=== PATIENT | male | born 1985 | race Two or more races ===

== ENCOUNTER 2019-03-22 17:38 | Emergency (ER) | payer SELFPAY ==
[~2019-03-22] VITALS: Ht 182.9 cm; Wt 160.6 kg
[2019-03-22 17:52] VITALS: BP 145/96
[2019-03-22] MEDS ORDERED: predniSONE 10 MG TABLET PO ONE (18:30)
[2019-03-22] MEDS ORDERED: PRED50TA PO (18:30)
--- NOTE | 2019-03-22 18:30 | PHYS DOC ---
Past Medical History Past Medical History: No Pertinent History (KELLI HARPER APRN) Past Surgical History: No Surgical History (KELLI HARPER APRN) Alcohol Use: None Drug Use: None (KELLI HARPER APRN) Adult General Chief Complaint Chief Complaint: EYE PROBLEMS HPI HPI Patient is a 34 year old male who is unsteady emergency department with complaints of right eye swelling. Patient states he was stung in the right side of his forehead yesterday by a bee or a wasp. He has been taking Benadryl at home every 6 hours but noticed that his eye started to swell today. He denies any shortness of breath, vision changes, tearing of the affected eye, fever, or itching. Patient denies any pain at this time. (KELLI HARPER APRN) Review of Systems Review of Systems Constitutional: Denies fever or chills [] Eyes: Denies change in visual acuity, see history of present illness HENT: Denies nasal congestion or sore throat [] Respiratory: Denies cough or shortness of breath [] Integument: Reports erythema and swelling to right forehead and right eye after insect sting Neurologic: Denies headache, Endocrine: Denies polyuria or polydipsia [] Complete systems were reviewed and found to be within normal limits, except as documented in this note. (KELLI HARPER APRN) Current Medications Current Medications Current Medications Medications (Trade) Dose Ordered Sig/Guanako Start Time Stop Time Status Last Admin Dose Admin Prednisone (Prednisone) 50 mg 1X ONCE 03/22/19 18:30 03/22/19 18:31 DC 03/22/19 18:28 50 MG (JOCELYNE ALBARADO MD) Allergies Allergies Allergies Coded Allergies Type Severity Reaction Last Updated Verified No Known Drug Allergies 03/22/19 No (JOCELYNE ALBARADO MD) Physical Exam Physical Exam Constitutional: Well developed, well nourished, no acute distress, non-toxic appearance, obese. [] HENT: Normocephalic, atraumatic, bilateral external ears normal, oropharynx moist, no oral exudates, nose normal. [] Eyes: PERRLA, EOMI, conjunctiva normal, no discharge; moderate edema to right eyelids, no drainage, no tearing from eye. [] Neck: Normal range of motion, no stridor. [] Cardiovascular:Heart rate regular rhythm Lungs & Thorax: Bilateral breath sounds clear to auscultation [] Skin: Warm, dry; erythema surrounding punctum site of right forehead, consistent with allergic reaction to insect sting Extremities: No cyanosis, no clubbing, ROM intact Neurologic: Alert and oriented X 3, no focal deficits noted. [] Psychologic: Affect normal, judgement normal, mood normal. [] (KELLI HARPER APRN) Current Patient Data Vital Signs Vital Signs Date Time Temp Pulse Resp B/P (MAP) Pulse Ox O2 Delivery O2 Flow Rate FiO2 03/22/19 17:52 98.5 94 18 145/96 (112) 96 Room Air 98.5 (JOCELYNE ALBARADO MD) EKG EKG [] (KELLI HARPER APRN) Radiology/Procedures Radiology/Procedures [] (KELLI HARPER APRN) Course & Med Decision Making Course & Med Decision Making Pertinent Labs and Imaging studies reviewed. (See chart for details) [] (KELLI HARPER APRN) Course & Med Decision Making Staff Physician Addendum: I was working in the ER during the course of this patient's visit. I was av ailable for consultation as needed, but I was not directly involved in the care of this patient. (JOCELYNE ALBARADO MD) Dragon Disclaimer Dragon Disclaimer This electronic medical record was generated, in whole or in part, using a voice recognition dictation system. (KELLI HARPER APRN) Departure Departure Impression: Primary Impression: Allergic reaction to insect sting Disposition: 01 HOME, SELF-CARE Condition: STABLE Referrals: NO PCP (PCP) Patient Instructions: Bee, Wasp, or Hornet Sting Additional Instructions: Fill the prescription and begin taking medication tomorrow as you were given the first dose in the ER today. Continue taking Benadryl 1-2 tablets every 6 hours as needed for itching and swelling. Follow-up with your primary care doctor if her symptoms persist, return to the ER for symptoms worsen. Scripts Prednisone (PREDNISONE) 50 Mg Tablet 1 TAB PO DAILY for 4 Days, #4 TAB 0 Refills begin taking on 03/23/19 Prov: KELLI HARPER APRN 03/22/19 Problem Qualifiers Primary Impression: Allergic reaction to insect sting Encounter type: initial encounter Injury intent: accidental or unintentional Qualified Codes: T63.481A - Toxic effect of venom of other arthropod, accidental (unintentional), initial encounter KELLI HARPER SALES PLANNING COORDINATOR Mar 22, 2019 18:30 JOCELYNE ALBARADO MD Mar 22, 2019 21:21
== END 2019-03-22 18:36 | disposition home or self-care (01) ==
LOC: ER 17:38
DX: T63.481A Toxic effect of venom of other arthropod, accidental (unintentional), initial encounter (principal); Y92.89 Other specified places as the place of occurrence of the external cause
CPT/HCPCS: 99283; J7512

== ENCOUNTER 2020-10-01 05:58 | Emergency (ER) | payer OTHER ==
[~2020-10-01] VITALS: Ht 182.9 cm; Wt 156.8 kg
[~2020-10-01 05:58] MED LIST: PRED50TA PO
[2020-10-01] MEDS ORDERED: TETRACAINE 0.5% OPHTH SOLUTION 4ML BOTTLE. OU ONE (06:15)
[2020-10-01] MEDS ORDERED: FLUORESCEIN OPHTH TEST STRIP. OU ONE (06:15)
[2020-10-01] MEDS ORDERED: GENT3.5O9 OS (06:40)
[2020-10-01] MEDS ORDERED: TOBR5DRO6 OS (06:40)
--- NOTE | 2020-10-01 06:40 | PHYS DOC ---
Past Medical History Past Medical History: No Pertinent History Past Surgical History: No Surgical History Smoking Status: Never Smoker Alcohol Use: None Drug Use: None General Adult EDM: Chief Complaint: EYE PROBLEMS HPI: HPI: Patient is a 35 year old male who presented to ER for evaluation of left eye irritation since yesterday. Patient described the pain as sharp scratching, very sensitive to light. Patient IS not sure what happened, he woke up in the morning yesterday and had the problem. Patient had corneal abrasion in the past and symptoms of feeling the same way as before. Review of Systems: Review of Systems: Constitutional: Denies fever or chills. [] Eyes: Left eye pain, No loss of vision. HENT: Denies nasal congestion or sore throat. [] Respiratory: Denies cough or shortness of breath. [] Cardiovascular: Denies chest pain or edema. [] GI: Denies abdominal pain, nausea, vomiting, bloody stools or diarrhea. [] : Denies dysuria. [] Musculoskeletal: Denies back pain or joint pain. [] Integument: Denies rash. [] Neurologic: Denies headache, focal weakness or sensory changes. [] Endocrine: Denies polyuria or polydipsia. [] Lymphatic: Denies swollen glands. [] Psychiatric: Denies depression or anxiety. [] Heart Score: Risk Factors: Risk Factors: DM, Current or recent (<one month) smoker, HTN, HLP, family history of CAD, obesity. Risk Scores: Score 0 - 3: 2.5% MACE over next 6 weeks - Discharge Home Score 4 - 6: 20.3% MACE over next 6 weeks - Admit for Clinical Observation Score 7 - 10: 72.7% MACE over next 6 weeks - Early Invasive Strategies Current Medications: Current Medications Medications (Trade) Dose Ordered Sig/Guanako Start Time Stop Time Status Last Admin Dose Admin Fluorescein Sodium (Ful-Tootie) 1 strip 1X ONCE 10/01/20 06:15 10/01/20 06:16 DC 10/01/20 06:27 1 STRIP Tetracaine HCl (Tetracaine) 1 drop 1X ONCE 10/01/20 06:15 10/01/20 06:16 DC 10/01/20 06:27 1 DROP Allergies: Allergies: Allergies Coded Allergies Type Severity Reaction Last Updated Verified No Known Drug Allergies 7/15/19 No Physical Exam: PE: Constitutional: Well developed, well nourished, no acute distress, non-toxic appearance. [] HENT: Normocephalic, atraumatic, bilateral external ears normal, oropharynx moist, no oral exudates, nose normal. [] Eyes: PERRLA, EOMI, conjunctiva is injected, watery, no discharge, dye uptake at the 6 olock position consistent with cornea abrasion . Neck: Normal range of motion, no tenderness, supple, no stridor. [] Cardiovascular:Heart rate regular rhythm, no murmur [] Lungs & Thorax: Bilateral breath sounds clear to auscultation [] Abdomen: Bowel sounds normal, soft, no tenderness, no masses, no pulsatile mas ses. [] Skin: Warm, dry, no erythema, no rash. [] Back: No tenderness, no CVA tenderness. [] Extremities: No tenderness, no cyanosis, no clubbing, ROM intact, no edema. [] Neurologic: Alert and oriented X 3, normal motor function, normal sensory function, no focal deficits noted. [] Psychologic: Affect normal, judgement normal, mood normal. [] EKG: EKG: [] Radiology/Procedures: Radiology/Procedures: [] Course & Med Decision Making: Course & Med Decision Making Pertinent Labs and Imaging studies reviewed. (See chart for details) [] Dragon Disclaimer: Dragon Disclaimer: This electronic medical record was generated, in whole or in part, using a voice recognition dictation system. Departure Departure Impression: Primary Impression: Left cornea abrasion Disposition: 01 DC HOME SELF CARE/HOMELESS Condition: IMPROVED Referrals: NO PCP (PCP) Please call this EYE DOCTOR BELOW FOR FOLLOW UP IN 1-[address] Moose Mckee [address] [id number] Patient Instructions: Eye - Corneal Abrasion Additional Instructions: Thank you for visiting our Emergency Department. We appreciate you trusting us with your care. If any additional problems come up don't hesitate to return to visit us. Please follow up with your primary care provider so they can plan additional care if needed and know about the problem that you had. If symptoms worsen come back to the Emergency Department. Any concerning symptoms that start such as chest pain, shortness of air, weakness or numbness on one side of the body, running high fevers or any other concerning symptoms return to the ER. Scripts Gentamicin Sulfate (GENTAMICIN SULFATE 0.3% OPHTH OINT) 3.5 Gm Oint...g. 1 KIRA OS QID for 5 Days, #1 EACH Prov: ELIGIO DE DO 10/01/20 Tobramycin Ophth (TOBRAMYCIN OPHTH DROPS) 5 Ml Drops 2 DROP OS QID for 7 Days, #5 ML 0 Refills Prov: ELIGIO DE DO 10/01/20 ELIGIO DE DO Oct 01, 2020 06:40
== END 2020-10-01 06:45 | disposition home or self-care (01) ==
LOC: ER 05:58
DX: S05.02XA Injury of conjunctiva and corneal abrasion without foreign body, left eye, initial encounter (principal); R20.2 Paresthesia of skin; X58.XXXA Exposure to other specified factors, initial encounter; Y93.89 Activity, other specified; Y92.89 Other specified places as the place of occurrence of the external cause; Y99.8 Other external cause status
CPT/HCPCS: 99283

== ENCOUNTER 2021-02-17 17:24 | Emergency (ER) | payer OTHER ==
[~2021-02-17] VITALS: Ht 182.9 cm; Wt 156.8 kg
[~2021-02-17 17:24] MED LIST changes: +GENT3.5O9 OS; +TOBR5DRO6 OS
[2021-02-17 17:40] VITALS: BP 144/66
[2021-02-17] MEDS ORDERED: TETRACAINE 0.5% OPHTH SOLUTION 4ML BOTTLE. OS ONE (19:30)
[2021-02-17] MEDS ORDERED: FLUORESCEIN OPHTH TEST STRIP. OS ONE (19:30)
[2021-02-17] MEDS ORDERED: TOBR3.5O2 LEFTEYE (20:43)
--- NOTE | 2021-02-17 20:43 | PHYS DOC ---
Past Medical History Past Medical History: No Pertinent History Past Surgical History: No Surgical History Smoking Status: Never Smoker Alcohol Use: None Drug Use: None General Adult EDM: Chief Complaint: EYE PROBLEMS HPI: HPI: Patient is a 35 year old male with history of corneal abrasion to the left eye presenting today stating he has scratched his left eye again 2 days ago. Patient denies any vision loss. Reports tearing and photosensitivity. He states he has been using erythromycin eye ointment but does not feel it is doing anything Review of Systems: Review of Systems: Constitutional: Denies fever or chills. [] Eyes: Reports corneal abrasion/scratch to the left eye. Denies change in visual acuity. [] Musculoskeletal: Denies back pain or joint pain. [] Integument: Denies rash. [] Neurologic: Denies headache, focal weakness or sensory changes. [] Psychiatric: Denies depression or anxiety. [] Heart Score: C/O Chest Pain: N/A Risk Factors: Risk Factors: DM, Current or recent (<one month) smoker, HTN, HLP, family history of CAD, obesity. Risk Scores: Score 0 - 3: 2.5% MACE over next 6 weeks - Discharge Home Score 4 - 6: 20.3% MACE over next 6 weeks - Admit for Clinical Observation Score 7 - 10: 72.7% MACE over next 6 weeks - Early Invasive Strategies Current Medications: Current Medications Medications (Trade) Dose Ordered Sig/Guanako Start Time Stop Time Status Last Admin Dose Admin Fluorescein Sodium (Ful-Tootie) 1 strip 1X ONCE 02/17/21 19:30 02/17/21 19:31 DC 02/17/21 20:23 1 STRIP Tetracaine HCl (Tetracaine) 1 drop 1X ONCE 02/17/21 19:30 02/17/21 19:31 DC 02/17/21 20:23 1 DROP Allergies: Allergies: Allergies Coded Allergies Type Severity Reaction Last Updated Verified No Known Drug Allergies 03/22/19 No Physical Exam: PE: Constitutional: Well developed, well nourished, no acute distress, non-toxic appearance. [] HENT: Normocephalic, atraumatic, bilateral external ears normal, oropharynx moist, no oral exudates, nose normal. [] Eyes: PERRLA, EOMI, left conjunctiva is moderately injected. Left eye exam under Kirkpatrick lamp, I was numbed with tetracaine and stained with fluorescein. Small corneal abrasion noted at around 1700 position. There appears to be another old corneal abrasion beside this one Skin: Warm, dry, no erythema, no rash. [] Back: No tenderness, no CVA tenderness. [] Extremities: No tenderness, no cyanosis, no clubbing, ROM intact, no edema. [] Neurologic: Alert and oriented X 3, normal motor function, normal sensory function, no focal deficits noted. [] Psychologic: Affect normal, judgement normal, mood normal. [] Current Patient Data: Vital Signs: Vital Signs Date Time Temp Pulse Resp B/P (MAP) Pulse Ox O2 Delivery O2 Flow Rate FiO2 02/17/21 17:40 98.4 98 20 144/66 (92) 96 98.4 EKG: EKG: [] Radiology/Procedures: Radiology/Procedures: [] Course & Med Decision Making: Course & Med Decision Making Pertinent Labs and Imaging studies reviewed. (See chart for details) This is a 35-year-old male patient with cornea abrasion to the left eye. This is patient's second corneal abrasion in 1 year I recommended seeing an drying equipment operator which I provided. Discharge today with tobramycin. He states he has been using an eye ointment. Visual acuity documented by nursing staff. Tetanus up-to-date. Saad Disclaimer: Saad Disclaimer: This electronic medical record was generated, in whole or in part, using a voice recognition dictation system. Departure Departure Impression: Primary Impression: Corneal abrasion, left Qualified Codes: S05.02XA - Injury of conjunctiva and corneal abrasion without foreign body, left eye, initial encounter Disposition: HOME / SELF CARE / HOMELESS Condition: STABLE Referrals: NO PCP (PCP) BEN SIMMONS MD Patient Instructions: Eye - Corneal Abrasion, [id number] Additional Instructions: You have a corneal abrasion to the left eye. Use the medicine prescribed as ordered. Please follow-up with the provided drying equipment operator next week. Scripts Tobramycin/Dexamethasone (TOBRADEX EYE OINTMENT) 3.5 Gm Oint...g. 1 KIRA ZAC FLOWERSD, #3.5 GM Prov: CUBA TREVINO CIVIL ENGINEER IN TRAINING 02/17/21 CUBA TREVINO CIVIL ENGINEER IN TRAINING Feb 17, 2021 20:43
== END 2021-02-17 20:55 | disposition home or self-care (01) ==
LOC: ER 17:24
DX: S05.02XA Injury of conjunctiva and corneal abrasion without foreign body, left eye, initial encounter (principal); W50.4XXA Accidental scratch by another person, initial encounter; Y93.89 Activity, other specified; Y92.89 Other specified places as the place of occurrence of the external cause; Y99.8 Other external cause status
CPT/HCPCS: 99283

== ENCOUNTER 2021-04-18 11:54 | Emergency (ER) | payer OTHER ==
[~2021-04-18] VITALS: Ht 182.9 cm; Wt 179.7 kg
[~2021-04-18 11:54] MED LIST changes: +TOBR3.5O2 LEFTEYE
[2021-04-18 13:20] VITALS: BP 140/67
[2021-04-18] MEDS ORDERED: TETRACAINE 0.5% OPHTH SOLUTION 4ML BOTTLE. OS ONE (13:45)
[2021-04-18] MEDS ORDERED: FLUORESCEIN OPHTH TEST STRIP. OS ONE (13:45)
[2021-04-18] MEDS ORDERED: TOBR5DRO6 OS (13:56)
[2021-04-18] MEDS ORDERED: ERYT1OIN6 OP (13:56)
--- NOTE | 2021-04-18 13:57 | PHYS DOC ---
Past Medical History Past Medical History: No Pertinent History Additional Past Medical Histor: morbid obesity Past Surgical History: No Surgical History Smoking Status: Never Smoker Alcohol Use: None Drug Use: None General Adult EDM: Chief Complaint: EYE PROBLEMS HPI: HPI: Patient is a 36 year old male who present to ER for evaluation of left eye irritation since last night patient said his eye is red and very sensitive to light, initially he felt like there was something in his left eye so he was scrubbed and oriented now become more painful. Patient is up-to-date on his tetanus status. Review of Systems: Review of Systems: Constitutional: Denies fever or chills. [] Eyes: Denies change in visual acuity. Positive for left eye pain and irritation. HENT: Denies nasal congestion or sore throat. [] Respiratory: Denies cough or shortness of breath. [] Cardiovascular: Denies chest pain or edema. [] GI: Denies abdominal pain, nausea, vomiting, bloody stools or diarrhea. [] : Denies dysuria. [] Musculoskeletal: Denies back pain or joint pain. [] Integument: Denies rash. [] Neurologic: Denies headache, focal weakness or sensory changes. [] Endocrine: Denies polyuria or polydipsia. [] Lymphatic: Denies swollen glands. [] Psychiatric: Denies depression or anxiety. [] Heart Score: C/O Chest Pain: N/A Risk Factors: Risk Factors: DM, Current or recent (<one month) smoker, HTN, HLP, family history of CAD, obesity. Risk Scores: Score 0 - 3: 2.5% MACE over next 6 weeks - Discharge Home Score 4 - 6: 20.3% MACE over next 6 weeks - Admit for Clinical Observation Score 7 - 10: 72.7% MACE over next 6 weeks - Early Invasive Strategies Current Medications: Current Medications Medications (Trade) Dose Ordered Sig/Guanako Start Time Stop Time Status Last Admin Dose Admin Fluorescein Sodium (Ful-Tootie) 1 strip 1X ONCE 04/18/21 13:45 04/18/21 13:46 DC 04/18/21 13:38 1 STRIP Tetracaine HCl (Tetracaine) 2 drop 1X ONCE 04/18/21 13:45 04/18/21 13:46 DC 04/18/21 13:38 2 DROP Allergies: Allergies: Allergies Coded Allergies Type Severity Reaction Last Updated Verified No Known Drug Allergies 04/18/21 No Physical Exam: PE: Constitutional: Well developed, well nourished, no acute distress, non-toxic appearance. [] HENT: Normocephalic, atraumatic, bilateral external ears normal, oropharynx moist, no oral exudates, nose normal. [] Eyes: PERRLA, EOMI, left conjunctive are slightly injected,DYE UPTAKE AT MID POINT OF PUPIL AREA CONSISTENT WITH CORNEA ABRASION, NO HYPHEMA, NEGATIVE SIDEL TEST. Neck: Normal range of motion, no tenderness, supple, no stridor. [] Cardiovascular:Heart rate regular rhythm, no murmur [] Lungs & Thorax: Bilateral breath sounds clear to auscultation [] Abdomen: Bowel sounds normal, soft, no tenderness, no masses, no pulsatile masses. [] Skin: Warm, dry, no erythema, no rash. [] Back: No tenderness, no CVA tenderness. [] Extremities: No tenderness, no cyanosis, no clubbing, ROM intact, no edema. [] Neurologic: Alert and oriented X 3, normal motor function, normal sensory function, no focal deficits noted. [] Psychologic: Affect normal, judgement normal, mood normal. [] Current Patient Data: Vital Signs: Vital Signs Date Time Temp Pulse Resp B/P (MAP) Pulse Ox O2 Delivery O2 Flow Rate FiO2 04/18/21 13:20 97.4 86 20 140/67 (92) 96 Room Air 97.4 EKG: EKG: [] Radiology/Procedures: Radiology/Procedures: [] Course & Med Decision Making: Course & Med Decision Making Pertinent Labs and Imaging studies reviewed. (See chart for details) [] Dragon Disclaimer: Dragon Disclaimer: This electronic medical record was generated, in whole or in part, using a voice recognition dictation system. Departure Departure Impression: Primary Impression: Corneal abrasion, left Disposition: HOME / SELF CARE / HOMELESS Condition: STABLE Referrals: NO PCP (PCP) Please call this EYE DOCTOR BELOW FOR FOLLOW UP IN 1-[address] Moose Mckee [address] [id number] Patient Instructions: Eye - Corneal Abrasion Additional Instructions: Thank you for visiting our Emergency Department. We appreciate you trusting us with your care. If any additional problems come up don't hesitate to return to visit us. Please follow up with your primary care provider so they can plan additional care if needed and know about the problem that you had. If symptoms worsen come back to the Emergency Department. Any concerning symptoms that start such as chest pain, shortness of air, weakness or numbness on one side of the body, running high fevers or any other concerning symptoms return to the ER. Scripts Tobramycin Ophth (TOBRAMYCIN OPHTH DROPS) 5 Ml Drops 3 DROP OS QID for 7 Days, #10 ML 0 Refills Prov: ELIGIO DE DO 04/18/21 Erythromycin Base (Erythromycin) 1 Gm Oint...g. 1 GM OP TID for 1 Day, #1 Apply 1 cm ribbon to left eye three times per day for 7 days Prov: ELIGIO DE DO 04/18/21 ELIGIO DE DO Apr 18, 2021 13:57
== END 2021-04-18 14:06 | disposition home or self-care (01) ==
LOC: ER 11:54
DX: S00.212A Abrasion of left eyelid and periocular area, initial encounter (principal); X58.XXXA Exposure to other specified factors, initial encounter; Y93.89 Activity, other specified; Y92.89 Other specified places as the place of occurrence of the external cause; Y99.8 Other external cause status
CPT/HCPCS: 99283